=== PATIENT | male | born 1980 | race Two or more races ===

== ENCOUNTER → 2020-03-29 09:25 | Outpatient (BNVA) | payer OTHER, SELFPAY | PROVIDERS: PCP Physician Assistant; Referring Provider Physician Assistant; Visit Provider Internal Medicine | DX: F11.99 Opioid use, unspecified with unspecified opioid-induced disorder (principal) | CPT/HCPCS: 80305; 99211 ==

== ENCOUNTER → 2020-04-18 09:28 | Outpatient (BNVA) | payer OTHER, SELFPAY | PROVIDERS: PCP Family Medicine Adult Medicine; Visit Provider Internal Medicine | DX: F11.99 Opioid use, unspecified with unspecified opioid-induced disorder (principal) | CPT/HCPCS: 80305; 99211 ==

== ENCOUNTER → 2020-04-25 09:54 | Outpatient (BNVA) | payer OTHER, SELFPAY | PROVIDERS: PCP Family Medicine Adult Medicine; Visit Provider Internal Medicine | DX: F11.90 Opioid use, unspecified, uncomplicated (principal) | CPT/HCPCS: 99211 ==

== ENCOUNTER → 2020-05-09 13:48 | Outpatient (BNVA) | payer OTHER, SELFPAY | PROVIDERS: Visit Provider Internal Medicine | DX: F11.99 Opioid use, unspecified with unspecified opioid-induced disorder (principal) | CPT/HCPCS: 80305; 99211 ==

== ENCOUNTER → 2020-05-23 14:42 | Outpatient (BNVA) | payer OTHER, SELFPAY | PROVIDERS: Visit Provider Internal Medicine | DX: Z13.89 Encounter for screening for other disorder (principal) | CPT/HCPCS: 99211 ==

== ENCOUNTER → 2020-06-06 16:19 | Outpatient (BNVA) | payer OTHER, SELFPAY | PROVIDERS: Visit Provider Internal Medicine | DX: Z13.89 Encounter for screening for other disorder (principal) | CPT/HCPCS: Q3014 ==

== ENCOUNTER 2020-06-07 11:18 | Outpatient (REF) | payer OTHER, SELFPAY | END 2020-06-07 11:19 | disposition home or self-care (01) | LOC: HO.LAB 11:18 | PROVIDERS: PCP Family Medicine Adult Medicine; Visit Provider Internal Medicine | DX: Z20.828 Contact with and (suspected) exposure to other viral communicable diseases (principal) | CPT/HCPCS: C9803; U0003 ==

== ENCOUNTER → 2020-06-20 15:19 | Outpatient (BNVA) | payer OTHER, SELFPAY | PROVIDERS: Visit Provider Internal Medicine | DX: Z13.89 Encounter for screening for other disorder (principal) | CPT/HCPCS: Q3014 ==

== ENCOUNTER → 2020-07-04 11:41 | Outpatient (BNVA) | payer OTHER, SELFPAY | PROVIDERS: PCP Family Medicine Adult Medicine; Visit Provider Internal Medicine | DX: F11.99 Opioid use, unspecified with unspecified opioid-induced disorder (principal) | CPT/HCPCS: Q3014 ==

== ENCOUNTER → 2020-07-18 14:00 | Outpatient (BNVA) | payer OTHER, SELFPAY | PROVIDERS: Visit Provider Internal Medicine ==

== ENCOUNTER → 2020-08-08 10:48 | Outpatient (BNVA) | payer OTHER, SELFPAY | PROVIDERS: Visit Provider Internal Medicine | DX: Z51.81 Encounter for therapeutic drug level monitoring (principal) | CPT/HCPCS: 80305; 99211 ==

== ENCOUNTER → 2020-09-01 13:35 | Outpatient (BNVA) | payer OTHER, SELFPAY | PROVIDERS: Visit Provider Internal Medicine | DX: Z13.89 Encounter for screening for other disorder (principal) | CPT/HCPCS: Q3014 ==

== ENCOUNTER → 2020-10-06 14:55 | Outpatient (BNVA) | payer OTHER, SELFPAY | PROVIDERS: Visit Provider Internal Medicine | DX: F11.99 Opioid use, unspecified with unspecified opioid-induced disorder (principal) | CPT/HCPCS: 80305; 99212 ==

== ENCOUNTER → 2020-10-20 13:01 | Outpatient (BNVA) | payer OTHER, SELFPAY | PROVIDERS: Visit Provider Internal Medicine | DX: F11.99 Opioid use, unspecified with unspecified opioid-induced disorder (principal) | CPT/HCPCS: 80305; 99212 ==

== ENCOUNTER → 2020-11-03 12:52 | Outpatient (BNVA) | payer OTHER, SELFPAY | PROVIDERS: Visit Provider Internal Medicine | DX: F11.99 Opioid use, unspecified with unspecified opioid-induced disorder (principal) | CPT/HCPCS: 80305; 99211 ==

== ENCOUNTER → 2020-11-17 13:02 | Outpatient (BNVA) | payer OTHER, SELFPAY | PROVIDERS: Visit Provider Internal Medicine | DX: F11.99 Opioid use, unspecified with unspecified opioid-induced disorder (principal) | CPT/HCPCS: 80305; 99211 ==

== ENCOUNTER 2020-11-22 13:26 | Inpatient (IN) | payer OTHER, SELFPAY ==
[2020-11-22 13:40] VITALS: BP 132/90; PULSE 88; RESP 16; O2SAT 95; BMI 21.1
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
[2020-11-22 14:20] LABS: Glucose Urine UA NEG (NEG); Leukocyte Esterase Urine TRACE (NEG); Nitrite Urine NEG (NEG); UACC Culture Trigger YES; Urine Blood NEG (NEG); Urine Ketones NEG (NEG); Urine Protein NEG (NEG-TRACE)
[2020-11-22 14:22] LABS: Appearance Urine HAZY; Color Urine YELLOW
--- NOTE | 2020-11-22 14:29 | HE.PHANOTE ---
Pharmacy Consult ? Medication Reconciliation Pharmacy has completed the medication reconciliation and there were no significant medication issues requiring provider attention. Inna PalomoD
[2020-11-22 14:45] LABS: Amphetamine Screen Urine Not Detected (Not Detect); Barbiturates, Urine Not Detected (Not Detect); Benzodiazepines Screen Urine Not Detected (Not Detect); Cannabinoid Screen Urine Not Detected (Not Detect); Cocaine Screen Urine POSITIVE (Not Detect); Opiate Screen Urine Not Detected (Not Detect); Phencyclidine Screen Urine Not Detected (Not Detect)
[2020-11-22 14:46] LABS: Mucus Urine 1+ /LPF; RBC Urine 0 /HPF (0); Renal Epithelial Cells Urine TRACE /LPF
[2020-11-22 14:49] LABS: MANUAL DIFF FLAG NO
[2020-11-22 14:52] LABS: Basophils Percent Auto 0.4 % (0-2); Eosinophils Absolute Auto 0.1 X10*3/uL (0.0-0.4); Eosinophils Percent Auto 1.7 % (0-4); Hematocrit 47.8 % (42-52); Hemoglobin 15.5 g/dl (14.0-18.0); Imm Gran Abs Auto 0.03 X10*3/uL (0.00-0.03); Imm Gran Pct Auto 0.4 % (0.0-0.4); Lymphocytes Absolute Auto 1.1 X10*3/uL (1.2-4.9); Lymphocytes Percent Auto 13.1 % (20-40); Mean Corpuscular HGB Conc 32.4 g/dl (31.0-36.0); Mean Corpuscular Hemoglobin 28.9 pg (27.0-33.0); Mean Platelet Volume 8.5 fL (9.4-12.4); Monocytes Absolute Auto 0.4 X10*3/uL (0.1-1.2); Monocytes Percent Auto 5.2 % (2-11); Neutrophils Absolute Auto 6.5 X10*3/uL (2.0-8.3); Neutrophils Percent Auto 79.2 % (45-73); Platelet Count 242 X10*3/uL (160-400); Red Blood Count 5.37 X10*6/uL (4.60-5.80); Red Cell Distribution Width 13.2 % (11.0-16.0); White Blood Count 8.2 X10*3/uL (4.8-10.8)
[2020-11-22 15:11] LABS: COVID-19 Test Negative (Negative); IDNOW Serial# 9DD0AD1C
[2020-11-22 15:19] LABS: Ethanol < 10 mg/dL
[2020-11-22 15:23] LABS: Alanine Aminotransferase 10 U/L (0-40); Albumin Level 4.6 g/dL (3.5-5.0); Alkaline Phosphatase 68 U/L (39-117); Anion Gap 12 (12-20); Aspartate Amino Transferase 10 U/L (5-37); Bilirubin Direct 0.4 mg/dL (0.0-0.5); Bilirubin Total 1.3 mg/dL (0.0-1.0); Blood Urea Nitrogen 12 mg/dL (9-16); Calcium 9.7 mg/dL (8.4-10.2); Carbon Dioxide 28 mmol/L (22-29); Chloride 106 mmol/L (96-108); Creatinine Clr Calc Pharmacy 73.1; Estimated Glomerular Filt Rate > 60; Glucose Random 109 mg/dL (60-115); Magnesium 2.2 mg/dL (1.6-2.6); Potassium 4.1 mmol/L (3.3-5.1); Sodium 142 mmol/L (135-145); Total Protein 6.9 g/dL (6.5-8.0)
[2020-11-22 17:26] LABS: Lithium 0.36 mmol/L (0.60-1.20)
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
[2020-11-22] MEDS: LORazepam 2 MG/ML VIAL IM (18:47)
--- NOTE | 2020-11-22 19:53 | PC.NURSE ---
pt is still in 4 point restraints at this time. pt mom called and pt has the cordless phone placed on his pillow. sitter present 1:1.
--- NOTE | 2020-11-22 21:03 | PC.NURSE ---
pt sleeping resting comfortably, no s/s of distress. restraints remain off.
[2020-11-22] MEDS: QUEtiapine Fumarate 200 MG TABLET PO (22:43)
[2020-11-22] MEDS: Lithium Carbonate ER 450 MG TABLET.ER PO (22:43)
[2020-11-22] MEDS: clonazePAM 1 MG TABLET PO (22:43)
[2020-11-23] VITALS: RESP 16
--- NOTE | 2020-11-23 | ECG_ITS ---
Test Reason : MED CLARANCE Blood Pressure : / mmHG Vent. Rate : 061 BPM Atrial Rate : 061 BPM P-R Int : 140 ms QRS Dur : 098 ms QT Int : 430 ms P-R-T Axes : 049 086 063 degrees QTc Int : 432 ms Normal sinus rhythm Incomplete right bundle branch block Borderline ECG When compared with ECG of 27-APR-2019 16:06, No significant change was found Referred By: Lena Barbour Electronically Signed By:Damon Moreno
[2020-11-23 02:00] VITALS: RESP 16
[2020-11-23 06:09] VITALS: BP 112/70; PULSE 68; RESP 16; TEMP 36.9; O2SAT 98
--- NOTE | 2020-11-23 06:47 | PC.NURSE ---
prev rn stated during shift report that the pt received haldol 5mg im at 1821 and ativan 2mg im and was in restrains. haldol no documented in the system.
--- NOTE | 2020-11-23 07:17 | PC.NURSE ---
Pt report received from [facility]. Pt appears to be sleeping at this time. In patient bedsearch continues.
[2020-11-23 07:33] VITALS: BP 120/79; PULSE 73; RESP 18; TEMP 36.2; O2SAT 97
[2020-11-23] MEDS: Lithium Carbonate ER 450 MG TABLET.ER PO ×2 (09:47→22:59)
[2020-11-23] MEDS: Buprenorphine/Naloxone 8/2 mg FILM 2 FILM SUBLINGUAL (09:47)
[2020-11-23] MEDS: clonazePAM 1 MG TABLET PO ×3 (09:48→22:59)
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
[2020-11-23] MEDS: QUEtiapine Fumarate 50 MG TABLET PO (15:16)
--- NOTE | 2020-11-23 16:07 | MHC.CLN ---
NOTE REGARDING CONSULT: REVIEWED CURRENT AND PRIOR WEIGHTS. CONFIRMED CURRENT WEIGHT WITH NURSING. PRIOR WEIGHT 05/11=69 KG. CURRENT WEIGHT=65 KG WITH BMI=21.1. CURRENT WEIGHT APPEARS WITHIN USUAL BODY WEIGHT. PATIENT IS CURRENTLY AT LOW NUTRITIONAL RISK
[2020-11-23] MEDS: QUEtiapine Fumarate 200 MG TABLET PO (22:59)
[2020-11-24 06:00] VITALS: BP 107/58; PULSE 83; RESP 16; TEMP 36.6; O2SAT 97
[2020-11-24 07:26] LABS: Cholesterol 145 mg/dL; HDL Cholesterol 39 mg/dL; LDL Cholesterol Calculated 76 mg/dl; Triglycerides 152 mg/dL
[2020-11-24 07:33] LABS: Free T4 (Free Thyroxine) 0.89 ng/dL (0.71-1.85); Thyroid Stimulating Hormone 1.28 uIU/mL (0.32-4.0)
[2020-11-24 07:35] LABS: Estimated Average Glucose 103 mg/dL; Hemoglobin A1c % 5.2 %
[2020-11-24 08:31] LABS: Folate 8.3 ng/mL (> or = 4.0); Vitamin B12 169 pg/mL (200-900)
[2020-11-24] MEDS: clonazePAM 1 MG TABLET PO ×3 (08:53→21:03)
[2020-11-24] MEDS: Lithium Carbonate ER 450 MG TABLET.ER PO ×2 (08:53→21:04)
[2020-11-24] MEDS: QUEtiapine Fumarate 50 MG TABLET PO ×3 (08:54→21:10)
[2020-11-24] MEDS: Buprenorphine/Naloxone 8/2 mg FILM 2 FILM SUBLINGUAL (08:56)
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
[2020-11-24 18:00] VITALS: BP 113/72; PULSE 77; RESP 18; O2SAT 97
[2020-11-24] MEDS: QUEtiapine Fumarate 200 MG TABLET PO (21:04)
[2020-11-25 06:00] VITALS: BP 117/63; BP 117/72; PULSE 76; PULSE 97; RESP 16; O2SAT 97
[2020-11-25] MEDS: clonazePAM 1 MG TABLET PO ×3 (09:29→21:43)
[2020-11-25] MEDS: Buprenorphine/Naloxone 8/2 mg FILM 1 FILM SUBLINGUAL ×2 (09:29→17:31)
[2020-11-25] MEDS: QUEtiapine Fumarate 50 MG TABLET PO ×3 (09:29→21:44)
[2020-11-25] MEDS: Nicotine 21 MG PATCH.TD24 TRANSDERMA (14:32)
[2020-11-25 18:00] VITALS: BP 135/76; PULSE 83; RESP 18; O2SAT 97
[2020-11-25] MEDS: Lithium Carbonate ER 450 MG TABLET.ER 900 MG PO (21:43)
--- NOTE | 2020-11-25 21:43 | HO.PSYCHPN ---
Subjective Subjective Date of Service: 11/25/20 Reason For Visit: SI Diagnostics Vital Signs (24Hr): Vital Signs - 24 hr 11/25/20 06:00 11/25/20 18:00 Pulse Rate 76 83 Respiratory Rate 16 18 Blood Pressure 117/63 135/76 Pulse Oximetry 97 97 Body Mass Index 21.1 Labs Results: 11/22/20 14:42 11/22/20 14:42 Labs: Laboratory Results - last 48 hr 11/24/20 11/24/20 11/24/20 06:25 06:25 06:25 Estimat Average Glucose 103 Hemoglobin A1c % 5.2 Triglycerides 152 Cholesterol 145 LDL Cholesterol, Calc 76 HDL Cholesterol 39 Vitamin B12 169 L Folate 8.3 TSH 1.28 Free T4 0.89 Medications Medications Current Medications Generic Name Dose Route Start Last Admin Trade Name Freq PRN Reason Stop Dose Admin Acetaminophen 650 mg 11/23/20 10:15 Acetaminophen 325 Mg Tablet PO Q6H PRN Headache/Pain Mild Scale (1-3) Al Hydroxide/Mg Hydroxide 30 ml 11/23/20 10:15 Magnesium Hydrox/Alum Hydrox 30 Ml Oral.Susp PO Q6H PRN Heartburn/Nausea Buprenorphine/Naloxone 1 film 11/24/20 17:00 11/25/20 17:31 Buprenorphine/Naloxone 8/2 Mg Film SUBLINGUAL 1 film BIDWM BAILEY Administration Clonazepam 1 mg 11/22/20 16:00 11/25/20 14:13 Clonazepam 1 Mg Tablet PO 1 mg TID BAILEY Administration Docosanol 1 appl 11/25/20 18:00 11/25/20 14:51 Docosanol 10 % Cream 2 Gm Tube TOPICAL 1 appl 5XD BAILEY Administration Protocol Hydroxyzine HCl 25 mg 11/23/20 10:15 Hydroxyzine Hcl 25 Mg Tablet PO BEDTIME PRN Anxiety Hydroxyzine HCl 25 mg 11/25/20 14:23 Hydroxyzine Hcl 25 Mg Tablet PO Q6H PRN Anxiety [place] Carbonate 900 mg 11/25/20 21:00 [place] Carbonate Er 450 Mg Tablet.Er PO BEDTIME BAILEY Magnesium Hydroxide 30 ml 11/23/20 10:15 Milk Of Magnesia 30 Ml Oral.Susp PO DAILY PRN Constipation Nicotine 21 mg 11/25/20 14:30 11/25/20 14:32 Nicotine 21 Mg Patch.Td24 TRANSDERMA 21 mg DAILY BAILEY Administration Pharmacy Consult 1 each 11/22/20 14:12 Consult Rx Perform Med Rec MISCELLANE ONCE PRN Consult order Pharmacy Consult 1 each 11/22/20 15:29 Consult Rx Perform Med Rec MISCELLANE ONCE PRN Consult order Quetiapine Fumarate 50 mg 11/22/20 16:00 11/25/20 14:14 Quetiapine Fumarate 50 Mg Tablet PO 50 mg QID PRN Administration Agitation Quetiapine Fumarate 200 mg 11/22/20 21:00 11/24/20 21:04 Quetiapine Fumarate 200 Mg Tablet PO 200 mg BEDTIME BAILEY Administration Trazodone HCl 50 mg 11/23/20 10:15 Trazodone Hcl 50 Mg Tablet PO BEDTIME PRN Insomnia Allergies Allergies Allergy/AdvReac Type Severity Reaction Status Date / Time No Known Allergies Allergy Verified 11/03/20 13:12 Assessment & Plan Greater than 50% of the session was spent on counseling and/or coordination of care
[2020-11-25] MEDS: QUEtiapine Fumarate 200 MG TABLET PO (21:45)
[2020-11-26 06:00] VITALS: BP 117/83; PULSE 66; RESP 16; O2SAT 98
[2020-11-26 08:00] VITALS: BP 117/83; PULSE 66; RESP 16; O2SAT 98
[2020-11-26] MEDS: Nicotine 21 MG PATCH.TD24 TRANSDERMA (08:06)
[2020-11-26] MEDS: clonazePAM 1 MG TABLET PO ×3 (08:06→22:36)
[2020-11-26] MEDS: QUEtiapine Fumarate 50 MG TABLET PO ×3 (08:06→22:36)
[2020-11-26] MEDS: Buprenorphine/Naloxone 8/2 mg FILM 1 FILM SUBLINGUAL ×2 (08:08→17:12)
[2020-11-26 19:55] VITALS: BP 130/86; PULSE 81; RESP 18; TEMP 36.8; O2SAT 97
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
--- NOTE | 2020-11-26 21:12 | P.PNPSI_ITS ---
Subjective Subjective Date of Service: 11/26/20 Reason For Visit: SI Subjective Notes: Conditional Voluntary Healthcare Proxy: No Guardianship: No Medical Problems Affecting Mental Status: No Interim History: Pt hoping for discharge on 11/27. States he has found the admission helpful and has gained perspective on his current stressors. Denies med SE. Denies medical sx. Denies SI, HI. Reports sleep is intact. Pt observed, both 11/25 and today, on the phone with family, agitated, cursing and labile. When reviewed, pt reports this to be issue based vs mood based. Medication Compliance: Yes Side effects from medications: No Attending Groups: Yes Review of Systems Reports behavioral changes Psychiatric: Reports behavioral changes, Reports depression, Reports irri tability, Reports mood swings and Reports suicidal ideation (denies SI plan or intent) Mental Status Exam Mental Status Exam Patient Appearance: Appropriate Patient Orientation: Person, Place, Time and Situation Level of Consciousness: Alert Patient Behavior: Cooperative and Good Eye Contact Mood Description: Constricted Affect Description: Constricted Patient Cognition Impaired: No Ability to Follow Directions: Good Speech Pattern: Spontaneous Speech Memory Description: Intact Hallucinations: None Delusions: Not Present Thought Process: Intact Thought Content: positive for Intact Depressive Symptoms: Increased Irritability Judgement: Good Diagnostics Vital Signs (24Hr): Vital Signs - 24 hr 11/26/20 06:00 11/26/20 08:00 11/26/20 19:55 Temperature 98.3 F Pulse Rate 66 66 81 Respiratory Rate 16 16 18 Blood Pressure 117/83 117/83 130/86 Pulse Oximetry 98 98 97 Body Mass Index 21.1 Labs Results: 11/22/20 14:42 11/22/20 14:42 Medications Medications Current Medications Generic Name Dose Route Start Last Admin Trade Name Freq PRN Reason Stop Dose Admin Acetaminophen 650 mg 11/23/20 10:15 Acetaminophen 325 Mg Tablet PO Q6H PRN Headache/Pain Mild Scale (1-3) Al Hydroxide/Mg Hydroxide 30 ml 11/23/20 10:15 Magnesium Hydrox/Alum Hydrox 30 Ml Oral.Susp PO Q6H PRN Heartburn/Nausea Buprenorphine/Naloxone 1 film 11/24/20 17:00 11/26/20 17:12 Buprenorphine/Naloxone 8/2 Mg Film SUBLINGUAL 1 film BIDWM [facility] Administration Clonazepam 1 mg 11/22/20 16:00 11/26/20 14:41 Clonazepam 1 Mg Tablet PO 1 mg TID [facility] Administration Docosanol 1 appl 11/25/20 18:00 11/26/20 19:01 Docosanol 10 % Cream 2 Gm Tube TOPICAL 1 appl 5XD [facility] Administration Protocol Hydroxyzine HCl 25 mg 11/23/20 10:15 Hydroxyzine Hcl 25 Mg Tablet PO BEDTIME PRN Anxiety Hydroxyzine HCl 25 mg 11/25/20 14:23 Hydroxyzine Hcl 25 Mg Tablet PO Q6H PRN Anxiety [place] Carbonate 900 mg 11/25/20 21:00 11/25/20 21:43 [place] Carbonate Er 450 Mg Tablet.Er PO 900 mg BEDTIME [facility] Administration Magnesium Hydroxide 30 ml 11/23/20 10:15 Milk Of Magnesia 30 Ml Oral.Susp PO DAILY PRN Constipation Nicotine 21 mg 11/25/20 14:30 11/26/20 08:06 Nicotine 21 Mg Patch.Td24 TRANSDERMA 21 mg DAILY [facility] Administration Pharmacy Consult 1 each 11/22/20 14:12 Consult Rx Perform Med Rec MISCELLANE ONCE PRN Consult order Pharmacy Consult 1 each 11/22/20 15:29 Consult Rx Perform Med Rec MISCELLANE ONCE PRN Consult order Quetiapine Fumarate 50 mg 11/22/20 16:00 11/26/20 14:49 Quetiapine Fumarate 50 Mg Tablet PO 50 mg QID PRN Administration Agitation Quetiapine Fumarate 200 mg 11/22/20 21:00 11/25/20 21:45 Quetiapine Fumarate 200 Mg Tablet PO 200 mg BEDTIME [facility] Administration Trazodone HCl 50 mg 11/23/20 10:15 Trazodone Hcl 50 Mg Tablet PO BEDTIME PRN Insomnia Allergies Allergies Allergy/AdvReac Type Severity Reaction Status Date / Time No Known Allergies Allergy Verified 11/03/20 13:12 Assessment & Plan Assessment & Plan (1) Bipolar disorder: Status: Acute Code(s): F31.9 - Bipolar disorder, unspecified Assessment and Plan: 40 yo male with hx of depression, anxiety, opiate and cocaine use disorders. Pt currently on Suboxone. Pt to ER with police after calling them reporting SI with a plan to hang himself. Denies HI. Pt required restraint in the ER. Family reports he has been non compliant with medications STERNMAN. [place] level 0.36, tox + cocaine Will re-establish regime, obtain collateral contact, review diagno stics and discuss precipitants and need for further supports with pt. He does have stable therapy and medication mgt in place. Plan: Continue current regime. Pt does not want any changes in regime at this time. Greater than 50% of the session was spent on counseling and/or coordination of care Reason for contiued inpatient stay Substantial Risk for: harm to self, inability to function and rapid decompensation
[2020-11-26] MEDS: QUEtiapine Fumarate 200 MG TABLET PO (22:36)
[2020-11-26] MEDS: Lithium Carbonate ER 450 MG TABLET.ER 900 MG PO (22:36)
[2020-11-27] MEDS: QUEtiapine Fumarate 50 MG TABLET PO ×2 (08:04→13:33)
[2020-11-27] MEDS: Nicotine 21 MG PATCH.TD24 TRANSDERMA (08:04)
[2020-11-27] MEDS: clonazePAM 1 MG TABLET PO ×2 (08:04→13:33)
[2020-11-27] MEDS: Buprenorphine/Naloxone 8/2 mg FILM 1 FILM SUBLINGUAL ×2 (08:05→13:33)
[2020-11-27 09:52] VITALS: BP 120/69; PULSE 78; RESP 18; TEMP 36.8; O2SAT 97
--- NOTE | 2020-11-27 13:34 | P.DS_ITS ---
DS: Providers Provider Date of Service: 11/27/20 Date of admission: 11/23/20 10:15 Primary care physician: Unknown Physician DS: Diagnosis Discharge Diagnosis (1) Bipolar disorder: Status: Acute DS: Medications Discharge Medications Home Medications: Home Medications Medication Instructions Recorded Confirmed clonazepam 1 mg tablet 1 mg PO TID 03/29/20 11/22/20 quetiapine 50 mg PO QID PRN 11/22/20 11/22/20 Previous Rx's Medication Instructions Recorded buprenorphine 8 mg-naloxone 2 mg 2 film SUBLINGUAL DAILY 14 Days 11/17/20 sublingual film #28 ea lithium carbonate 900 mg PO BEDTIME #30 tab 11/27/20 quetiapine 200 mg PO BEDTIME #30 tab 11/27/20 Discharge Plan Discharge Patient Disposition: Home, Self-Care Discharge Diagnosis: Bipolar Disorder type I Referrals: [facility] [Other] - 11/27/20 (Go to the clinic once you are discharged to schedule your next appointment and get scripts filled) Nikki Sky (psychiatrist) [Other] - 12/26/20 11:10 am (Telehealth appointment) Anel Martinez (therapist) [Other] (Follow up with therapist for appointment, voicemail left) Physician,Unknown [Primary Care Provider] - 1 Week Discharge Medications: New quetiapine 200 mg Tablet 200 mg PO BEDTIME Qty: 30 RF: 0 lithium carbonate 450 mg Tablet Extended Release 900 mg PO BEDTIME Qty: 30 RF: 0 Continued quetiapine 50 mg tablet 50 mg PO QID PRN (Reason: Agitation) RF: 0 clonazepam [Klonopin] 1 mg tablet 1 mg PO TID RF: 0 Discontinued lithium carbonate 450 mg tablet extended release 450 mg PO BID RF: 0 quetiapine 200 mg tablet 200 mg PO BEDTIME RF: 0 No Action buprenorphine-naloxone [Suboxone] 8-2 mg film 2 film sublingual DAILY 14 Days Qty: 28 RF: 0 Discharge Orders: Discharge Order (Routine); Ordered 11/27/20 Ordered By: Georgiana Dexter Diet: regular diet Activity on Discharge: As tolerated Stand Alone Forms: Patient Portal Discharge page Care Plan Goals: Improve mood Maintain safety Health Concerns: Follow up with PCP Plan of Treatment: 1. Take medications as prescribed. 2. Follow up with appointments 3. Abstain from using illegal substances. 4. Go to nearest ED or call 911 in event of emergency. Assessment: No SI/HI. Future oriented. Discharge Date/Time: 11/27/20 14:05 Mental Status Exam Mental Status Exam Narrative: Appearance: casually groomed, fair hygiene, in NAD Behavior: calm, cooperative Psychomotor: no agitation or retardation noted Speech: clear, normal rate/rhythm/volume, spontaneous TP: linear TC: no signs of psychosis, more hopeful Mood: better Affect:brightens at times SI:denies HI:denies AH/VH:none Delusions:none Insight/judgment:fair x 2 Memory/cog: alert, oriented x 3. grossly intact to conversational testing. Data Data Completed and Pending Completed studies during hospitalization [Text1]: 11/22/20 11/22/20 11/22/20 14:03 14:15 14:42 WBC 8.2 RBC 5.37 Hgb 15.5 Hct 47.8 MCV 89.0 MCH 28.9 MCHC 32.4 RDW 13.2 Plt Count 242 MPV 8.5 L Immature Gran % (Auto) 0.4 Neut % (Auto) 79.2 H Lymph % (Auto) 13.1 L [place] % (Auto) 5.2 Eos % (Auto) 1.7 Baso % (Auto) 0.4 Lymph # (Auto) 1.1 L [place] # (Auto) 0.4 Eos # (Auto) 0.1 Baso # (Auto) 0.0 Abs Immat Gran (auto) 0.03 Absolute Neuts (auto) 6.5 Absolute Nucleated RBC 0.000 Nucleated RBC % (auto) 0.0 Sodium Potassium Chloride Carbon Dioxide Anion Gap BUN Creatinine Estim Creat Clear Calc Estimated GFR Random Glucose Estimat Average Glucose Hemoglobin A1c % Calcium Magnesium Total Bilirubin Direct Bilirubin AST ALT Alkaline Phosphatase Total Protein Albumin Triglycerides Cholesterol LDL Cholesterol, Calc HDL Cholesterol Vitamin B12 Folate TSH Free T4 Urine Color YELLOW Urine Appearance HAZY Urine pH 6.0 Ur Specific [place] 1.020 Urine Protein NEG Urine Glucose (UA) NEG Urine Ketones NEG Urine Blood NEG Urine Nitrite NEG Ur Leukocyte Esterase TRACE H Urine RBC 0 Urine WBC 1-4 Ur Squamous Epith Cells NONE Ur Renal Epithelial Cell TRACE Urine Bacteria NONE Urine Mucus 1+ Urine Opiates Screen Not Detected Ur Barbiturates Screen Not Detected Ur Phencyclidine Scrn Not Detected Ur Amphetamines Screen Not Detected U Benzodiazepines Scrn Not Detected [place] Urine Cocaine Screen POSITIVE H U Marijuana (THC) Screen Not Detected Ethyl Alcohol COVID-19 ([facility]ZETT) COVID-19 [employer] Com 11/22/20 11/22/20 11/22/20 14:42 14:42 14:42 WBC RBC Hgb Hct MCV MCH MCHC RDW Plt Count MPV Immature Gran % (Auto) Neut % (Auto) Lymph % (Auto) [place] % (Auto) Eos % (Auto) Baso % (Auto) Lymph # (Auto) [place] # (Auto) Eos # (Auto) Baso # (Auto) Abs Immat Gran (auto) Absolute Neuts (auto) Absolute Nucleated RBC Nucleated RBC % (auto) Sodium 142 Potassium 4.1 Chloride 106 Carbon Dioxide 28 Anion Gap 12 BUN 12 Creatinine 1.21 Estim Creat Clear Calc 73.1 Estimated GFR > 60 Random Glucose 109 Estimat Average Glucose Hemoglobin A1c % Calcium 9.7 Magnesium 2.2 Total Bilirubin 1.3 H Direct Bilirubin 0.4 AST 10 ALT 10 Alkaline Phosphatase 68 Total Protein 6.9 Albumin 4.6 Triglycerides Cholesterol LDL Cholesterol, Calc HDL Cholesterol Vitamin B12 Folate TSH Free T4 Urine Color Urine Appearance Urine pH Ur Specific [place] Urine Protein Urine Glucose (UA) Urine Ketones Urine Blood Urine Nitrite Ur Leukocyte Esterase Urine RBC Urine WBC Ur Squamous Epith Cells Ur Renal Epithelial Cell Urine Bacteria Urine Mucus Urine Opiates Screen Ur Barbiturates Screen Ur Phencyclidine Scrn Ur Amphetamines Screen U Benzodiazepines Scrn [place] Urine Cocaine Screen U Marijuana (THC) Screen Ethyl Alcohol < 10 COVID-19 ([facility]) Negative COVID-19 [employer] Com See Note 11/22/20 11/22/20 11/24/20 14:42 14:42 06:25 WBC RBC Hgb Hct MCV MCH MCHC RDW Plt Count MPV Immature Gran % (Auto) Neut % (Auto) Lymph % (Auto) [place] % (Auto) Eos % (Auto) Baso % (Auto) Lymph # (Auto) [place] # (Auto) Eos # (Auto) Baso # (Auto) Abs Immat Gran (auto) Absolute Neuts (auto) Absolute Nucleated RBC Nucleated RBC % (auto) Sodium Potassium Chloride Carbon Dioxide Anion Gap BUN Creatinine Estim Creat Clear Calc Estimated GFR Random Glucose Estimat Average Glucose 103 Hemoglobin A1c % 5.2 Calcium Magnesium Total Bilirubin Direct Bilirubin AST ALT Alkaline Phosphatase Total Protein Albumin Triglycerides Cholesterol LDL Cholesterol, Calc HDL Cholesterol Vitamin B12 Folate TSH Free T4 Urine Color Urine Appearance Urine pH Ur Specific [place] Urine Protein Urine Glucose (UA) Urine Ketones Urine Blood Urine Nitrite Ur Leukocyte Esterase Urine RBC Urine WBC Ur Squamous Epith Cells Ur Renal Epithelial Cell Urine Bacteria Urine Mucus Urine Opiates Screen Ur Barbiturates Screen Ur Phencyclidine Scrn Ur Amphetamines Screen U Benzodiazepines Scrn [place] Cancelled 0.36 L Urine Cocaine Screen U Marijuana (THC) Screen Ethyl Alcohol COVID-19 ([facility]) COVID-19 Clin Com 11/24/20 11/24/20 06:25 06:25 WBC RBC Hgb Hct MCV MCH MCHC RDW Plt Count MPV Immature Gran % (Auto) Neut % (Auto) Lymph % (Auto) [place] % (Auto) Eos % (Auto) Baso % (Auto) Lymph # (Auto) [place] # (Auto) Eos # (Auto) Baso # (Auto) Abs Immat Gran (auto) Absolute Neuts (auto) Absolute Nucleated RBC Nucleated RBC % (auto) Sodium Potassium Chloride Carbon Dioxide Anion Gap BUN Creatinine Estim Creat Clear Calc Estimated GFR Random Glucose Estimat Average Glucose Hemoglobin A1c % Calcium Magnesium Total Bilirubin Direct Bilirubin AST ALT Alkaline Phosphatase Total Protein Albumin Triglycerides 152 Cholesterol 145 LDL Cholesterol, Calc 76 HDL Cholesterol 39 Vitamin B12 169 L Folate 8.3 TSH 1.28 Free T4 0.89 Urine Color Urine Appearance Urine pH Ur Specific [place] Urine Protein Urine Glucose (UA) Urine Ketones Urine Blood Urine Nitrite Ur Leukocyte Esterase Urine RBC Urine WBC Ur Squamous Epith Cells Ur Renal Epithelial Cell Urine Bacteria Urine Mucus Urine Opiates Screen Ur Barbiturates Screen Ur Phencyclidine Scrn Ur Amphetamines Screen U Benzodiazepines Scrn [place] Urine Cocaine Screen U Marijuana (THC) Screen Ethyl Alcohol COVID-19 ([facility]) COVID-19 Clin Com DS: Summary Hospital Course Hospital Course: Mr. Pathak is a 40 year-old male with hx of Bipolar Disorder, opioid use disorder in remission, cocaine use who self presented to [facility] ER reporting increased suicidal ideation in setting of loss of his brother who committed suicide about 5 months ago and having ongoing conflict with ex with whom he has a 6 year- old son. In the ED, his utox was positive for cocaine. He initially had called crisis and was assessed at his home and brought to ED via EMS. On the unit, Sam presents as pleasant and calm. He reports that he has learned over the years to identify the triggers for his increase depression and decided to ask for help before it was too late. He reports 7-10 years ago he had a serious suicide attempt when he tried to hang himself and was found unresponsive by first . He reports today he does not want to but needs help. He reports that use of cocaine was sporadic and only because of his increased depression. He declines any additional support in terms of substance use treatment. He denies hx of VH/AH. He does report hx of mood lability, periods of marked increased energy, engaging in risk behaviors independence of substance use. He reports he has been on [place] for several years and this medication has been very helpful for mood. He reports overall feel current medications are helping and needing mostly structure and support of inpatient unit. HOSPITAL COURSE Mr. Pathak was admitted on CV and placed on 15 minutes check for safety. He initially endorsed feeling very depressed, overwhelmed, anxious about recent loss of his younger brother, who of suicide 8 months ago and ongoing proble ms with first with whom he has a 6 year-old boy. He reported that he has learned over the years to identify triggers. He adamantly denied suicidal ideation on the unit and identify his children as protective factors. After discussing risks, benefits and alternative treatment options, he agreed to continue OP psych meds, which he has been taking for several years after several med trials. He felt that it was not a medication issue. He was continued on [place], clonazepam, suboxone. He decline referrals for further substance use treatment since he was positive for cocaine. He reported it was an occasional use and decline that it was problematic. He denies any plan to continue using cocaine, but this may be his effort to minimize his use and tits effects on his mood. He was visible in the unit, attended assigned groups. He reported improved symptoms of depression and presented future oriented in that he was looking forward to continue OP treatment and see his family, especially his daughter. There were no incidences of disruptive behaviors nor use of restraints. Status at Discharge Cognitive/behavioral status at discharge: No SI/HI. Affect is brighter, non labile. No VH/AH. No signs of aggression towards self or others. Functional status at discharge: independent ambulation Overall status at discharge: patient is progressing back to baseline Time Spent with Patient Time attestation: Total time spent providing and/or coordinating discharge services: Time spent: Greater than 30 minutes
== END 2020-11-27 14:05 | disposition home or self-care (01) | DRG 885 ==
LOC: HO.ED 16:38 → HO.PADLT16 11-23 10:56
PROVIDERS: Physician Assistant; Admitting Provider Psychiatry & Neurology Psychiatry; Emergency Provider Emergency Medicine; Visit Provider Social Worker
DX: F31.62 Bipolar disorder, current episode mixed, moderate (principal); R45.851 Suicidal ideations; F11.20 Opioid dependence, uncomplicated; F14.90 Cocaine use, unspecified, uncomplicated; Z20.822 Contact with and (suspected) exposure to COVID-19; Z91.5 Personal history of self-harm; Z87.891 Personal history of nicotine dependence; Z79.899 Other long term (current) drug therapy
CPT/HCPCS: 36415; 80048; 80061; 80076; 80178; 80307; 81001; 81003; 82077; 82607; 82746; 83036; 83735; 84439; 84443; 85025; 87635; 93005; 96372; 99285; J2060

== ENCOUNTER → 2020-11-27 14:16 | Outpatient (BNVA) | payer OTHER, SELFPAY | PROVIDERS: Visit Provider Internal Medicine | DX: F11.11 Opioid abuse, in remission (principal) | CPT/HCPCS: 80305 ==

== ENCOUNTER → 2020-12-01 11:56 | Outpatient (BNVA) | payer OTHER, SELFPAY | PROVIDERS: Visit Provider Internal Medicine | DX: Z51.81 Encounter for therapeutic drug level monitoring (principal) | CPT/HCPCS: Q3014 ==

== ENCOUNTER → 2020-12-15 13:37 | Outpatient (BNVA) | payer OTHER, SELFPAY | PROVIDERS: Visit Provider Internal Medicine | DX: Z51.81 Encounter for therapeutic drug level monitoring (principal) | CPT/HCPCS: 80305; 99211 ==

== ENCOUNTER → 2020-12-29 13:00 | Outpatient (BNVA) | payer OTHER, SELFPAY | PROVIDERS: Visit Provider Internal Medicine | DX: Z51.81 Encounter for therapeutic drug level monitoring (principal) | CPT/HCPCS: 80305; 99211 ==

== ENCOUNTER → 2021-01-12 12:51 | Outpatient (BNVA) | payer OTHER, SELFPAY | PROVIDERS: Visit Provider Internal Medicine | DX: F11.99 Opioid use, unspecified with unspecified opioid-induced disorder (principal) | CPT/HCPCS: 80305; 99211 ==

== ENCOUNTER → 2021-01-26 12:55 | Outpatient (BNVA) | payer OTHER, SELFPAY | PROVIDERS: Visit Provider Internal Medicine | DX: F11.11 Opioid abuse, in remission (principal); F14.129 Cocaine abuse with intoxication, unspecified | CPT/HCPCS: 80305; 99212 ==

== ENCOUNTER 2021-01-28 13:23 | Emergency (ER) | payer OTHER, SELFPAY ==
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
[2021-01-28 14:42] VITALS: BP 126/72; PULSE 63; RESP 14; TEMP 36.6; O2SAT 99; BMI 22.8
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
[2021-01-28 16:45] VITALS: BP 117/76; PULSE 60; TEMP 36.7; O2SAT 99
[2021-01-28 17:09] LABS: MANUAL DIFF FLAG NO
[2021-01-28 17:11] LABS: Basophils Percent Auto 0.3 % (0-2); Eosinophils Absolute Auto 0.1 X10*3/uL (0.0-0.4); Eosinophils Percent Auto 0.8 % (0-4); Hematocrit 47.6 % (42-52); Hemoglobin 15.3 g/dl (14.0-18.0); Imm Gran Abs Auto 0.05 X10*3/uL (0.00-0.03); Imm Gran Pct Auto 0.5 % (0.0-0.4); Lymphocytes Absolute Auto 1.5 X10*3/uL (1.2-4.9); Lymphocytes Percent Auto 15.5 % (20-40); Mean Corpuscular HGB Conc 32.1 g/dl (31.0-36.0); Mean Corpuscular Volume 90.2 fL (80-98); Mean Platelet Volume 9.1 fL (9.4-12.4); Monocytes Absolute Auto 0.5 X10*3/uL (0.1-1.2); Monocytes Percent Auto 5.2 % (2-11); Neutrophils Absolute Auto 7.7 X10*3/uL (2.0-8.3); Neutrophils Percent Auto 77.7 % (45-73); Platelet Count 242 X10*3/uL (160-400); Red Blood Count 5.28 X10*6/uL (4.60-5.80); White Blood Count 9.9 X10*3/uL (4.8-10.8)
[2021-01-28 17:15] LABS: INTERNATIONAL NORM RATIO 0.9 (0.9-1.1); Prothrombin Time 10.2 SEC (9.9-13.0)
[2021-01-28 17:32] LABS: Lactic Acid 1.2 mmol/L (0.5-2.0)
[2021-01-28] MEDS: Diphth,Pertus(ACell),Tet Adult 0.5 ML SYRINGE IM (17:34)
[2021-01-28 17:36] LABS: Alanine Aminotransferase 13 U/L (0-40); Albumin Level 4.9 g/dL (3.5-5.0); Alkaline Phosphatase 74 U/L (39-117); Anion Gap 11 (12-20); Aspartate Amino Transferase 12 U/L (5-37); Bilirubin Total 0.9 mg/dL (0.0-1.0); Blood Urea Nitrogen 15 mg/dL (9-16); C Reactive Protein 0.39 mg/dL (< or = 0.50); Calcium 9.6 mg/dL (8.4-10.2); Carbon Dioxide 27 mmol/L (22-29); Chloride 110 mmol/L (96-108); Creatinine Clr Calc Pharmacy 77.8; Estimated Glomerular Filt Rate > 60; Glucose Random 107 mg/dL (60-115); Magnesium 2.2 mg/dL (1.6-2.6); Potassium 4.8 mmol/L (3.3-5.1); Sodium 143 mmol/L (135-145); Total Protein 7.5 g/dL (6.5-8.0)
[2021-01-28] MEDS: Buprenorphine/Naloxone 8/2 mg TAB.SUBL 2 TAB SUBLINGUAL (17:49)
[2021-01-28] MEDS: cefTRIAXone sodium 2 GM in 0.9 % Sodium Chloride 50 ML IV (17:49)
[2021-01-28 17:56] LABS: Influenza A PCR NEGATIVE (Negative); Influenza B PCR NEGATIVE (Negative); Resp Syncy Virus RNA Qual PCR NEGATIVE (Negative); SARS COV2 PCR INHOUSE NEGATIVE (Negative)
[2021-01-28 18:02] LABS: Erythrocyte Sedimentation Rate 1 MM/HR (0-15)
[2021-01-28] MEDS: vancomycin HCL 750 MG in 0.9 % Sodium Chloride 250 ML 265 MG IV (18:21)
== END 2021-01-28 18:48 | disposition home or self-care (01) ==
PROVIDERS: Physician Assistant Medical; Emergency Provider Internal Medicine; PCP Family Medicine Adult Medicine
DX: T81.49XA Infection following a procedure, other surgical site, initial encounter (principal); L02.416 Cutaneous abscess of left lower limb; M25.562 Pain in left knee; Z20.822 Contact with and (suspected) exposure to COVID-19; F11.20 Opioid dependence, uncomplicated; F17.210 Nicotine dependence, cigarettes, uncomplicated; F14.10 Cocaine abuse, uncomplicated
CPT/HCPCS: 0241U; 36415; 73560; 80053; 83605; 83735; 85025; 85610; 85652; 86140; 87040; 90471; 90715; 96365; 96367; 99284; J0696; J3370

== ENCOUNTER → 2021-02-02 13:02 | Outpatient (BNVA) | payer OTHER, SELFPAY | PROVIDERS: Visit Provider Internal Medicine | DX: Z51.81 Encounter for therapeutic drug level monitoring (principal) | CPT/HCPCS: 80305; 99211 ==

== ENCOUNTER 2021-02-09 12:46 | Outpatient (RCR) | payer OTHER, SELFPAY | END 2021-04-03 07:26 | disposition home or self-care (01) | LOC: HO.WCC 12:46 | PROVIDERS: PCP Family Medicine Adult Medicine; Visit Provider Plastic Surgery | DX: S81.012A Laceration without foreign body, left knee, initial encounter (principal); F17.210 Nicotine dependence, cigarettes, uncomplicated | CPT/HCPCS: 11042; 99213 ==

== ENCOUNTER → 2021-02-23 13:02 | Outpatient (BNVA) | payer OTHER, SELFPAY | PROVIDERS: Visit Provider Internal Medicine | DX: Z51.81 Encounter for therapeutic drug level monitoring (principal); F11.11 Opioid abuse, in remission | CPT/HCPCS: 80305; 99212 ==

== ENCOUNTER → 2021-03-09 13:03 | Outpatient (BNVA) | payer OTHER, SELFPAY | PROVIDERS: Visit Provider Internal Medicine | DX: Z51.81 Encounter for therapeutic drug level monitoring (principal); F11.11 Opioid abuse, in remission | CPT/HCPCS: 80305; 99212 ==

== ENCOUNTER 2021-03-20 14:05 | Outpatient (REF) | payer OTHER, SELFPAY ==
[2021-03-20 17:26] LABS: Fentanyl, urine Not Detected (Not Detect)
== END 2021-03-20 14:06 | disposition home or self-care (01) ==
LOC: HO.LNP 14:05
PROVIDERS: Visit Provider Internal Medicine
DX: Z51.81 Encounter for therapeutic drug level monitoring (principal); F11.99 Opioid use, unspecified with unspecified opioid-induced disorder; Z79.899 Other long term (current) drug therapy
CPT/HCPCS: 80307; 99212

== ENCOUNTER → 2021-04-06 11:38 | Outpatient (BNVA) | payer OTHER, SELFPAY | PROVIDERS: Visit Provider Internal Medicine | DX: F11.11 Opioid abuse, in remission (principal) | CPT/HCPCS: 80305; 99212 ==

== ENCOUNTER 2021-04-20 11:27 | Outpatient (REF) | payer OTHER, SELFPAY ==
[2021-04-20 17:58] LABS: Fentanyl, urine Not Detected (Not Detect)
== END 2021-04-20 11:28 | disposition home or self-care (01) ==
LOC: HO.LNP 11:27
PROVIDERS: Visit Provider Internal Medicine
DX: F11.11 Opioid abuse, in remission (principal); F14.129 Cocaine abuse with intoxication, unspecified; Z79.899 Other long term (current) drug therapy
CPT/HCPCS: 80305; 80307; 99212

== ENCOUNTER → 2021-04-27 11:30 | Outpatient (BNVA) | payer OTHER, SELFPAY | PROVIDERS: Visit Provider Internal Medicine | DX: F11.11 Opioid abuse, in remission (principal) | CPT/HCPCS: 80305; 99212 ==

== ENCOUNTER → 2021-05-04 13:17 | Outpatient (BNVA) | payer OTHER, SELFPAY | PROVIDERS: Visit Provider Internal Medicine | DX: F11.11 Opioid abuse, in remission (principal); Z51.81 Encounter for therapeutic drug level monitoring; Z79.899 Other long term (current) drug therapy | CPT/HCPCS: 80305; 99212 ==

== ENCOUNTER → 2021-05-11 15:32 | Outpatient (BNVA) | payer OTHER, SELFPAY | PROVIDERS: Visit Provider Internal Medicine | DX: F11.11 Opioid abuse, in remission (principal); F17.210 Nicotine dependence, cigarettes, uncomplicated; Z51.81 Encounter for therapeutic drug level monitoring | CPT/HCPCS: 80305; 99212 ==

== ENCOUNTER → 2021-05-25 15:32 | Outpatient (BNVA) | payer OTHER, SELFPAY | PROVIDERS: Visit Provider Internal Medicine | DX: Z51.81 Encounter for therapeutic drug level monitoring (principal); F11.20 Opioid dependence, uncomplicated; F17.200 Nicotine dependence, unspecified, uncomplicated | CPT/HCPCS: 80305; 99212 ==

== ENCOUNTER → 2021-06-08 15:30 | Outpatient (BNVA) | payer OTHER, SELFPAY | PROVIDERS: Visit Provider Internal Medicine | DX: Z51.81 Encounter for therapeutic drug level monitoring (principal); F11.20 Opioid dependence, uncomplicated | CPT/HCPCS: 80305 ==

== ENCOUNTER → 2021-06-20 15:05 | Outpatient (BNVA) | payer OTHER, SELFPAY | DX: Z51.81 Encounter for therapeutic drug level monitoring (principal); F11.20 Opioid dependence, uncomplicated | CPT/HCPCS: 80305; 99211 ==

== ENCOUNTER → 2021-07-04 14:31 | Outpatient (BNVA) | payer OTHER, SELFPAY | DX: Z51.81 Encounter for therapeutic drug level monitoring (principal); F11.20 Opioid dependence, uncomplicated | CPT/HCPCS: 80305; 99211 ==

== ENCOUNTER → 2021-07-18 15:11 | Outpatient (BNVA) | payer OTHER, SELFPAY | PROVIDERS: Visit Provider Internal Medicine | DX: Z51.81 Encounter for therapeutic drug level monitoring (principal); F11.20 Opioid dependence, uncomplicated | CPT/HCPCS: 80305; 99211 ==

== ENCOUNTER → 2021-08-01 14:25 | Outpatient (BNVA) | payer OTHER, SELFPAY | PROVIDERS: Visit Provider Internal Medicine | DX: Z51.81 Encounter for therapeutic drug level monitoring (principal); F11.20 Opioid dependence, uncomplicated | CPT/HCPCS: 80305; 99211 ==

== ENCOUNTER → 2021-08-17 13:53 | Outpatient (BNVA) | payer OTHER, SELFPAY | PROVIDERS: Visit Provider Internal Medicine | DX: Z51.81 Encounter for therapeutic drug level monitoring (principal); F11.20 Opioid dependence, uncomplicated | CPT/HCPCS: 80305 ==

== ENCOUNTER 2021-09-01 14:30 | Emergency (ER) | payer OTHER, SELFPAY ==
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
[2021-09-01 14:40] VITALS: BP 147/87; PULSE 78; RESP 18; TEMP 37.6; O2SAT 97; BMI 24.3
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
[2021-09-01 18:57] LABS: MANUAL DIFF FLAG NO
[2021-09-01 19:03] LABS: Basophils Percent Auto 0.4 % (0-2); Eosinophils Absolute Auto 0.2 X10*3/uL (0.0-0.4); Eosinophils Percent Auto 1.8 % (0-4); Hemoglobin 15.5 g/dl (14.0-18.0); Imm Gran Abs Auto 0.04 X10*3/uL (0.00-0.03); Imm Gran Pct Auto 0.4 % (0.0-0.4); Lymphocytes Absolute Auto 1.6 X10*3/uL (1.2-4.9); Lymphocytes Percent Auto 16.9 % (20-40); Mean Corpuscular Hemoglobin 29.3 pg (27.0-33.0); Mean Corpuscular Volume 88.8 fL (80.0-98.0); Mean Platelet Volume 8.7 fL (9.4-12.4); Monocytes Absolute Auto 0.6 X10*3/uL (0.1-1.2); Neutrophils Absolute Auto 7.2 x10*3/uL (2.0-8.3); Neutrophils Percent Auto 74.5 % (45-73); Platelet Count 218 X10*3/uL (160-400); Red Blood Count 5.29 X10*6/uL (4.60-5.80); Red Cell Distribution Width 12.6 % (11.0-16.0); White Blood Count 9.7 X10*3/uL (4.8-10.8)
[2021-09-01 19:14] LABS: Alanine Aminotransferase 10 U/L (0-40); Albumin Level 4.7 g/dL (3.5-5.0); Alkaline Phosphatase 84 U/L (39-117); Anion Gap 11 (12-20); Aspartate Amino Transferase 12 U/L (5-37); Bilirubin Direct 0.4 mg/dL (0.0-0.5); Bilirubin Total 1.5 mg/dL (0.0-1.0); Blood Urea Nitrogen 9 mg/dL (9-16); Calcium 9.8 mg/dL (8.4-10.2); Carbon Dioxide 26 mmol/L (22-29); Chloride 107 mmol/L (96-108); Creatinine Clr Calc Pharmacy 95.9; Estimated Glomerular Filt Rate > 60; Glucose Random 104 mg/dL (60-115); Lipase 32 U/L (8-78); Sodium 140 mmol/L (135-145); Total Protein 7.5 g/dL (6.5-8.0)
[2021-09-01] MEDS: 0.9 % Sodium Chloride 1,000 ML 999 ML IV (19:47)
[2021-09-01] MEDS: iohexoL 350 MG/ML 100 ML INFUS..BTL IV (19:51)
== END 2021-09-01 21:30 | disposition home or self-care (01) ==
PROVIDERS: Physician Assistant; Emergency Provider Emergency Medicine Emergency Medical Services
DX: Z04.3 Encounter for examination and observation following other accident (principal); M25.512 Pain in left shoulder; R10.32 Left lower quadrant pain; R07.81 Pleurodynia; M25.552 Pain in left hip
CPT/HCPCS: 36415; 70450; 71101; 72125; 73030; 73502; 74177; 80048; 80076; 83690; 85025; 96360; 99284; Q9967

== ENCOUNTER → 2021-09-14 13:38 | Outpatient (BNVA) | payer OTHER, SELFPAY | PROVIDERS: Visit Provider Internal Medicine | DX: F11.20 Opioid dependence, uncomplicated (principal) | CPT/HCPCS: 80305; 99211 ==

== ENCOUNTER → 2021-10-12 15:48 | Outpatient (BNVA) | payer OTHER, SELFPAY | PROVIDERS: Visit Provider Internal Medicine | DX: F11.20 Opioid dependence, uncomplicated (principal) | CPT/HCPCS: 80305; 99212 ==

== ENCOUNTER → 2021-11-09 14:52 | Outpatient (BNVA) | payer OTHER, SELFPAY | PROVIDERS: Visit Provider Internal Medicine | DX: Z51.81 Encounter for therapeutic drug level monitoring (principal); F11.11 Opioid abuse, in remission | CPT/HCPCS: 99212 ==

== ENCOUNTER → 2021-12-07 14:17 | Outpatient (BNVA) | payer OTHER, SELFPAY | PROVIDERS: Visit Provider Internal Medicine | DX: F11.20 Opioid dependence, uncomplicated (principal) | CPT/HCPCS: 80305; 99212 ==

== ENCOUNTER 2021-12-12 13:10 | Outpatient (REF) | payer OTHER, SELFPAY ==
[2021-12-12 13:25] LABS: MANUAL DIFF FLAG NO
[2021-12-12 14:09] LABS: Basophils Percent Auto 0.3 % (0-2); Eosinophils Absolute Auto 0.2 X10*3/uL (0.0-0.4); Eosinophils Percent Auto 1.7 % (0-4); Hematocrit 49.6 % (42.0-52.0); Imm Gran Abs Auto 0.03 X10*3/uL (0.00-0.03); Imm Gran Pct Auto 0.3 % (0.0-0.4); Lymphocytes Absolute Auto 1.7 X10*3/uL (1.2-4.9); Lymphocytes Percent Auto 18.4 % (20-40); Mean Corpuscular HGB Conc 32.3 g/dl (31.0-36.0); Mean Corpuscular Hemoglobin 28.8 pg (27.0-33.0); Mean Corpuscular Volume 89.4 fL (80.0-98.0); Monocytes Absolute Auto 0.5 X10*3/uL (0.1-1.2); Monocytes Percent Auto 5.8 % (2-11); Neutrophils Absolute Auto 6.9 x10*3/uL (2.0-8.3); Neutrophils Percent Auto 73.5 % (45-73); Platelet Count 255 X10*3/uL (160-400); Red Blood Count 5.55 X10*6/uL (4.60-5.80); Red Cell Distribution Width 13.1 % (11.0-16.0); White Blood Count 9.4 X10*3/uL (4.8-10.8)
[2021-12-12 14:12] LABS: Estimated Average Glucose 97 mg/dL
[2021-12-12 14:26] LABS: Lithium 0.82 mmol/L (0.60-1.20)
[2021-12-12 14:54] LABS: Thyroid Stimulating Hormone 2.01 uIU/mL (0.32-4.0)
[2021-12-12 15:09] LABS: Alanine Aminotransferase 15 U/L (0-40); Albumin Level 4.9 g/dL (3.5-5.0); Alkaline Phosphatase 86 U/L (39-117); Anion Gap 13 (12-20); Aspartate Amino Transferase 13 U/L (5-37); Bilirubin Direct 0.4 mg/dL (0.0-0.5); Bilirubin Total 1.2 mg/dL (0.0-1.0); Blood Urea Nitrogen 10 mg/dL (9-16); Calcium 9.4 mg/dL (8.4-10.2); Carbon Dioxide 22 mmol/L (22-29); Chloride 109 mmol/L (96-108); Estimated Glomerular Filt Rate > 60; Glucose Random 107 mg/dL (60-115); Potassium 4.2 mmol/L (3.3-5.1); Sodium 140 mmol/L (135-145); Total Protein 7.5 g/dL (6.5-8.0)
== END 2021-12-12 13:11 | disposition home or self-care (01) ==
LOC: HO.LAB 13:10
PROVIDERS: Visit Provider Nurse Practitioner Psychiatric/Mental Health
DX: F33.2 Major depressive disorder, recurrent severe without psychotic features (principal); Z79.899 Other long term (current) drug therapy
CPT/HCPCS: 36415; 80053; 80178; 82248; 83036; 84443; 85025

== ENCOUNTER → 2022-01-04 14:13 | Outpatient (BNVA) | payer OTHER, SELFPAY | PROVIDERS: Visit Provider Internal Medicine | DX: F11.20 Opioid dependence, uncomplicated (principal) | CPT/HCPCS: 80305; 99212 ==

== ENCOUNTER → 2022-02-01 13:37 | Outpatient (BNVA) | payer OTHER, SELFPAY | PROVIDERS: Visit Provider Internal Medicine | DX: F11.11 Opioid abuse, in remission (principal); Z51.81 Encounter for therapeutic drug level monitoring; Z79.899 Other long term (current) drug therapy | CPT/HCPCS: 99212 ==

== ENCOUNTER → 2022-03-01 14:14 | Outpatient (BNVA) | payer OTHER, SELFPAY | PROVIDERS: Visit Provider Internal Medicine | DX: Z51.81 Encounter for therapeutic drug level monitoring (principal); F11.20 Opioid dependence, uncomplicated | CPT/HCPCS: 99212 ==

== ENCOUNTER → 2022-03-29 13:52 | Outpatient (BNVA) | payer OTHER, SELFPAY | PROVIDERS: Visit Provider Internal Medicine | DX: Z51.81 Encounter for therapeutic drug level monitoring (principal); F11.20 Opioid dependence, uncomplicated | CPT/HCPCS: 99212 ==

== ENCOUNTER → 2022-04-26 14:40 | Outpatient (BNVA) | payer OTHER, SELFPAY | PROVIDERS: Visit Provider Internal Medicine | DX: F11.11 Opioid abuse, in remission (principal); F12.20 Cannabis dependence, uncomplicated; Z51.81 Encounter for therapeutic drug level monitoring | CPT/HCPCS: 99212 ==

== ENCOUNTER → 2022-05-27 13:00 | Outpatient (BNVA) | payer OTHER, SELFPAY | PROVIDERS: Visit Provider Internal Medicine | DX: F11.20 Opioid dependence, uncomplicated (principal) | CPT/HCPCS: 99212 ==

== ENCOUNTER 2022-06-25 11:15 | Outpatient (REF) | payer OTHER, SELFPAY ==
[2022-07-02 07:53] LABS: Buprenorphine 45; Naloxone 70; Norbuprenorphine 159
== END 2022-06-25 11:16 | disposition home or self-care (01) ==
LOC: HO.LAB 11:15
PROVIDERS: Visit Provider Nurse Practitioner Psychiatric/Mental Health
DX: F11.20 Opioid dependence, uncomplicated (principal); Z51.81 Encounter for therapeutic drug level monitoring; Z79.899 Other long term (current) drug therapy
CPT/HCPCS: 80305; 80348; 80362; 99212

== ENCOUNTER → 2022-07-23 11:07 | Outpatient (BNVA) | payer OTHER, SELFPAY | PROVIDERS: Visit Provider Nurse Practitioner Psychiatric/Mental Health | DX: F11.20 Opioid dependence, uncomplicated (principal) | CPT/HCPCS: 99212 ==

== ENCOUNTER → 2022-08-20 10:46 | Outpatient (BNVA) | payer OTHER, SELFPAY | PROVIDERS: Visit Provider Nurse Practitioner Psychiatric/Mental Health | DX: Z51.81 Encounter for therapeutic drug level monitoring (principal); F11.20 Opioid dependence, uncomplicated | CPT/HCPCS: 80305; 99212 ==

== ENCOUNTER → 2022-11-11 09:49 | Outpatient (BNVA) | payer OTHER, SELFPAY | PROVIDERS: Visit Provider Nurse Practitioner Psychiatric/Mental Health | DX: F11.20 Opioid dependence, uncomplicated (principal); F12.20 Cannabis dependence, uncomplicated; F17.210 Nicotine dependence, cigarettes, uncomplicated; Z79.899 Other long term (current) drug therapy; Z51.81 Encounter for therapeutic drug level monitoring | CPT/HCPCS: 80305; 99212 ==

== ENCOUNTER → 2022-12-23 10:44 | Outpatient (BNVA) | payer OTHER, SELFPAY | PROVIDERS: Visit Provider Nurse Practitioner Psychiatric/Mental Health | DX: Z51.81 Encounter for therapeutic drug level monitoring (principal); F11.20 Opioid dependence, uncomplicated | CPT/HCPCS: 99212 ==

== ENCOUNTER 2023-02-14 11:00 | Outpatient (AMB) | payer OTHER, SELFPAY ==
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
[2023-02-14 11:09] VITALS: BP 124/72; PULSE 73; O2SAT 97
== END 2023-02-14 11:38 | disposition home or self-care (01) ==
LOC: HO.HCC 11:00
PROVIDERS: Visit Provider Nurse Practitioner Psychiatric/Mental Health
DX: F11.99 Opioid use, unspecified with unspecified opioid-induced disorder (principal)
CPT/HCPCS: 99213

== ENCOUNTER → 2023-02-14 11:00 | Outpatient (BNVA) | payer OTHER, SELFPAY | PROVIDERS: Visit Provider Nurse Practitioner Psychiatric/Mental Health | DX: F11.20 Opioid dependence, uncomplicated (principal) | CPT/HCPCS: 99212 ==

== ENCOUNTER 2023-02-14 11:48 | Outpatient (REF) | payer OTHER, SELFPAY ==
[2023-02-14 11:58] LABS: MANUAL DIFF FLAG NO
[2023-02-14 13:53] LABS: Basophils Absolute Auto 0.1 X10*3/uL (0.0-0.2); Basophils Percent Auto 0.8 % (0-2); Eosinophils Absolute Auto 0.2 X10*3/uL (0.0-0.4); Eosinophils Percent Auto 3.5 % (0-4); Hematocrit 45.7 % (42.0-52.0); Hemoglobin 14.8 g/dl (14.0-18.0); Imm Gran Abs Auto 0.03 X10*3/uL (0.00-0.03); Imm Gran Pct Auto 0.5 % (0.0-0.4); Lymphocytes Absolute Auto 1.6 X10*3/uL (1.2-4.9); Lymphocytes Percent Auto 25.8 % (20-40); Mean Corpuscular HGB Conc 32.4 g/dl (31.0-36.0); Mean Corpuscular Hemoglobin 28.8 pg (27.0-33.0); Mean Corpuscular Volume 88.9 fL (80.0-98.0); Mean Platelet Volume 9.8 fL (9.4-12.4); Monocytes Absolute Auto 0.4 X10*3/uL (0.1-1.2); Neutrophils Absolute Auto 3.9 x10*3/uL (2.0-8.3); Neutrophils Percent Auto 62.4 % (45-73); Platelet Count 269 X10*3/uL (160-400); Red Blood Count 5.14 X10*6/uL (4.60-5.80); Red Cell Distribution Width 12.7 % (11.0-16.0); White Blood Count 6.3 X10*3/uL (4.8-10.8)
[2023-02-14 14:50] LABS: Alanine Aminotransferase 10 U/L (0-40); Albumin Level 4.6 g/dL (3.5-5.0); Alkaline Phosphatase 58 U/L (39-117); Anion Gap 11 (12-20); Aspartate Amino Transferase 13 U/L (5-37); Bilirubin Direct 0.2 mg/dL (0.0-0.5); Bilirubin Total 0.7 mg/dL (0.0-1.0); Blood Urea Nitrogen 19 mg/dL (9-16); Calcium 9.4 mg/dL (8.4-10.2); Carbon Dioxide 26 mmol/L (22-29); Chloride 103 mmol/L (96-108); Cholesterol 165 mg/dL (<200); Estimated Glomerular Filt Rate > 60; Glucose Random 95 mg/dL (60-115); HDL Cholesterol 47 mg/dL (>40); LDL Cholesterol Calculated 97 mg/dL (<100); Potassium 4.2 mmol/L (3.3-5.1); Sodium 136 mmol/L (135-145); Total Protein 7.5 g/dL (6.5-8.0); Triglycerides 106 mg/dL (<150)
[2023-02-14 14:51] LABS: Free T4 (Free Thyroxine) 0.82 ng/dL (0.71-1.85); Thyroid Stimulating Hormone 3.88 uIU/mL (0.32-4.0); Vitamin D 25-OH Total 18.6 ng/mL (>30)
[2023-02-14 15:08] LABS: Lithium 0.87 mmol/L (0.60-1.20)
[2023-02-15 12:32] LABS: Triiodothyronine T3 Free 3.6 pg/mL (2.3-4.2)
== END 2023-02-14 11:49 | disposition home or self-care (01) ==
LOC: HO.LAB 11:48
PROVIDERS: Visit Provider Nurse Practitioner Psychiatric/Mental Health
DX: F11.20 Opioid dependence, uncomplicated (principal); F14.90 Cocaine use, unspecified, uncomplicated; Z79.899 Other long term (current) drug therapy
CPT/HCPCS: 36415; 80053; 80061; 80178; 82248; 82306; 84439; 84443; 84481; 85025

== ENCOUNTER 2023-04-11 10:47 | Outpatient (AMB) | payer OTHER, SELFPAY ==
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
[2023-04-11 10:55] VITALS: BP 126/70; PULSE 63; O2SAT 97
== END 2023-04-11 11:33 | disposition home or self-care (01) ==
PROVIDERS: Visit Provider Nurse Practitioner Psychiatric/Mental Health
DX: F11.11 Opioid abuse, in remission (principal)
CPT/HCPCS: 99213

== ENCOUNTER → 2023-04-11 10:47 | Outpatient (BNVA) | payer OTHER, SELFPAY | PROVIDERS: Visit Provider Nurse Practitioner Psychiatric/Mental Health | DX: F11.11 Opioid abuse, in remission (principal) | CPT/HCPCS: 99212 ==

== ENCOUNTER 2023-06-06 10:34 | Outpatient (AMB) | payer OTHER, SELFPAY ==
[2023-06-06 10:43] VITALS: BP 110/78; PULSE 66; O2SAT 95
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
== END 2023-06-06 11:48 | disposition home or self-care (01) ==
PROVIDERS: Visit Provider Nurse Practitioner Family
DX: F11.11 Opioid abuse, in remission (principal)
CPT/HCPCS: 99213

== ENCOUNTER → 2023-06-06 10:34 | Outpatient (BNVA) | payer OTHER, SELFPAY | PROVIDERS: Visit Provider Nurse Practitioner Family | DX: Z51.81 Encounter for therapeutic drug level monitoring (principal); F11.11 Opioid abuse, in remission | CPT/HCPCS: 99212 ==

== ENCOUNTER 2023-07-04 10:37 | Outpatient (AMB) | payer OTHER, SELFPAY ==
[2023-07-04 10:44] VITALS: BP 122/70; PULSE 80; O2SAT 97
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
== END 2023-07-04 11:29 | disposition home or self-care (01) ==
PROVIDERS: Visit Provider Nurse Practitioner Family
DX: F11.11 Opioid abuse, in remission (principal); F14.129 Cocaine abuse with intoxication, unspecified
CPT/HCPCS: 99214

== ENCOUNTER → 2023-07-04 10:37 | Outpatient (BNVA) | payer OTHER, SELFPAY | PROVIDERS: Visit Provider Nurse Practitioner Family | DX: F11.20 Opioid dependence, uncomplicated (principal); F14.129 Cocaine abuse with intoxication, unspecified | CPT/HCPCS: 99212 ==

== ENCOUNTER → 2023-08-01 13:22 | Outpatient (BNVA) | payer OTHER, SELFPAY | PROVIDERS: Visit Provider Nurse Practitioner Family ==

== ENCOUNTER 2023-08-18 10:40 | Outpatient (AMB) | payer MEDICARE, SELFPAY ==
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
[2023-08-18 10:57] VITALS: BP 110/76; PULSE 72; O2SAT 95
== END 2023-08-18 11:36 | disposition home or self-care (01) ==
PROVIDERS: Visit Provider Nurse Practitioner Family
DX: F11.11 Opioid abuse, in remission (principal); Z51.81 Encounter for therapeutic drug level monitoring
CPT/HCPCS: 99213

== ENCOUNTER 2023-08-18 10:40 | Outpatient (REF) | payer MEDICARE, MEDICAID, SELFPAY | END 2023-08-18 10:41 | disposition home or self-care (01) | LOC: HO.LAB 10:40 | PROVIDERS: Visit Provider Nurse Practitioner Family | DX: F11.11 Opioid abuse, in remission (principal); F14.20 Cocaine dependence, uncomplicated; F12.20 Cannabis dependence, uncomplicated; Z51.81 Encounter for therapeutic drug level monitoring; Z79.899 Other long term (current) drug therapy | CPT/HCPCS: 80305; 80348; 80362; 99212 ==

== ENCOUNTER 2023-09-01 10:40 | Outpatient (AMB) | payer MEDICARE, SELFPAY ==
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
[2023-09-01 10:47] VITALS: BP 128/70; PULSE 85; O2SAT 96
== END 2023-09-01 11:33 | disposition home or self-care (01) ==
PROVIDERS: Visit Provider Nurse Practitioner Family
DX: F11.99 Opioid use, unspecified with unspecified opioid-induced disorder (principal)
CPT/HCPCS: 99213

== ENCOUNTER → 2023-09-01 10:40 | Outpatient (BNVA) | payer MEDICARE, MEDICAID, SELFPAY | PROVIDERS: Visit Provider Nurse Practitioner Family | DX: F11.20 Opioid dependence, uncomplicated (principal) | CPT/HCPCS: 99212 ==

== ENCOUNTER 2023-09-29 10:43 | Outpatient (AMB) | payer OTHER, SELFPAY ==
[2023-09-29 10:54] VITALS: BP 120/70; PULSE 88; RESP 19
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
== END 2023-09-29 11:21 | disposition home or self-care (01) ==
PROVIDERS: Visit Provider Nurse Practitioner Family
DX: F11.11 Opioid abuse, in remission (principal)
CPT/HCPCS: 99213

== ENCOUNTER → 2023-09-29 10:43 | Outpatient (BNVA) | payer OTHER, SELFPAY | PROVIDERS: Visit Provider Nurse Practitioner Family | DX: Z51.81 Encounter for therapeutic drug level monitoring (principal); F11.11 Opioid abuse, in remission | CPT/HCPCS: 99212 ==

== ENCOUNTER 2023-10-24 10:44 | Outpatient (AMB) | payer OTHER, SELFPAY ==
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
== END 2023-10-24 11:44 | disposition home or self-care (01) ==
PROVIDERS: Visit Provider Nurse Practitioner Family
DX: F11.11 Opioid abuse, in remission (principal)
CPT/HCPCS: 99213

== ENCOUNTER → 2023-10-24 10:44 | Outpatient (BNVA) | payer OTHER, SELFPAY | PROVIDERS: Visit Provider Nurse Practitioner Family | DX: F11.20 Opioid dependence, uncomplicated (principal) | CPT/HCPCS: 99212 ==

== ENCOUNTER 2023-11-21 11:01 | Outpatient (AMB) | payer OTHER, SELFPAY ==
[2023-11-21 11:05] VITALS: BP 136/90; PULSE 71
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
== END 2023-11-21 11:59 | disposition home or self-care (01) ==
PROVIDERS: Visit Provider Nurse Practitioner Family
DX: F11.11 Opioid abuse, in remission (principal); F14.129 Cocaine abuse with intoxication, unspecified
CPT/HCPCS: 99213

== ENCOUNTER → 2023-11-21 11:01 | Outpatient (BNVA) | payer OTHER, SELFPAY | PROVIDERS: Visit Provider Nurse Practitioner Family | DX: Z51.81 Encounter for therapeutic drug level monitoring (principal); Z79.899 Other long term (current) drug therapy | CPT/HCPCS: 99212 ==

== ENCOUNTER 2023-12-19 10:55 | Outpatient (AMB) | payer OTHER, SELFPAY ==
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
== END 2023-12-19 12:51 | disposition home or self-care (01) ==
PROVIDERS: Visit Provider Nurse Practitioner Psychiatric/Mental Health
DX: F11.21 Opioid dependence, in remission (principal)
CPT/HCPCS: 99213

== ENCOUNTER → 2023-12-19 10:55 | Outpatient (BNVA) | payer OTHER, SELFPAY | PROVIDERS: Visit Provider Nurse Practitioner Psychiatric/Mental Health | DX: F11.21 Opioid dependence, in remission (principal) | CPT/HCPCS: 99212 ==

== ENCOUNTER 2024-01-12 14:30 | Outpatient (AMB) | payer OTHER, SELFPAY ==
[2024-01-12 14:39] VITALS: BP 120/60; PULSE 69; O2SAT 96
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
== END 2024-01-12 15:51 | disposition home or self-care (01) ==
PROVIDERS: Visit Provider Nurse Practitioner Psychiatric/Mental Health
DX: F11.21 Opioid dependence, in remission (principal)
CPT/HCPCS: 99213

== ENCOUNTER → 2024-01-12 14:30 | Outpatient (BNVA) | payer OTHER, SELFPAY | PROVIDERS: Visit Provider Nurse Practitioner Psychiatric/Mental Health | DX: F11.21 Opioid dependence, in remission (principal); Z51.81 Encounter for therapeutic drug level monitoring; Z79.899 Other long term (current) drug therapy | CPT/HCPCS: 99212 ==

== ENCOUNTER 2024-02-09 15:29 | Outpatient (AMB) | payer OTHER, SELFPAY ==
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
== END 2024-02-09 16:04 | disposition home or self-care (01) ==
PROVIDERS: Visit Provider Nurse Practitioner Psychiatric/Mental Health
DX: F11.21 Opioid dependence, in remission (principal)
CPT/HCPCS: 99213

== ENCOUNTER → 2024-02-09 15:29 | Outpatient (BNVA) | payer OTHER, SELFPAY | PROVIDERS: Visit Provider Nurse Practitioner Psychiatric/Mental Health | DX: Z51.81 Encounter for therapeutic drug level monitoring (principal); F11.21 Opioid dependence, in remission | CPT/HCPCS: 99212 ==

== ENCOUNTER 2024-02-16 04:24 | Emergency (ER) | payer OTHER, SELFPAY ==
[2024-02-16 04:37] VITALS: BP 120/89; BP 130/80; PULSE 67; PULSE 72; RESP 18; TEMP 36.7; O2SAT 100; O2SAT 99; BMI 22.8
[2024-02-16 06:06] LABS: Appearance Urine Clear; Color Urine Yellow; Glucose Urine UA Negative (Negative); Leukocyte Esterase Urine Trace (Negative); Nitrite Urine Negative (Negative); PH 7.5 (5.0-9.0); Specific Gravity - Urine <= 1.005 (1.005-1.025); UMIC TRIGGER UACC YES; Urine Blood Negative (Negative); Urine Ketones Negative (Negative); Urine Protein Negative (Neg-Trace)
[2024-02-16 06:08] LABS: Bacteria Urine None Seen (None Seen); Hyaline Casts Urine 0-2 /LPF (0-2); RBC Urine 0-2 /HPF (0-2); Squamous Epithelial Cell Urine 0-2 /HPF (0-2); WBC Urine 0-5 /HPF (0-5)
[2024-02-16 06:18] LABS: Amphetamine Screen Urine Not Detected (Not Detect); Barbiturates, Urine Not Detected (Not Detect); Benzodiazepines Screen Urine Not Detected (Not Detect); Buprenorphine Scr Not Detected (Not Detect); Cannabinoid Screen Urine Not Detected (Not Detect); Cocaine Screen Urine POSITIVE (Not Detect); Fentanyl, urine Not Detected (Not Detect); Methadone Screen, Urine Not Detected (Not Detect); Opiate Screen Urine Not Detected (Not Detect); Oxycodone Screen Urine Not Detected (Not Detect); Phencyclidine Screen Urine Not Detected (Not Detect)
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
[2024-02-16 06:52] VITALS: BP 127/90; PULSE 70; RESP 12; TEMP 36.4; O2SAT 100
[2024-02-16] MEDS: Buprenorphine/Naloxone 8/2 mg FILM 2 FILM SUBLINGUAL (06:59)
[2024-02-16 07:39] VITALS: BP 127/90; PULSE 70; RESP 12; TEMP 36.4; O2SAT 100
== END 2024-02-16 07:40 | disposition home or self-care (01) ==
PROVIDERS: Emergency Provider Emergency Medicine
DX: F11.13 Opioid abuse with withdrawal (principal); F14.10 Cocaine abuse, uncomplicated; F41.9 Anxiety disorder, unspecified; F17.210 Nicotine dependence, cigarettes, uncomplicated; Z79.899 Other long term (current) drug therapy; Z51.81 Encounter for therapeutic drug level monitoring
CPT/HCPCS: 80307; 81001; 99284

== ENCOUNTER 2024-03-08 14:17 | Outpatient (AMB) | payer OTHER, SELFPAY ==
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
== END 2024-03-08 14:54 | disposition home or self-care (01) ==
PROVIDERS: Visit Provider Nurse Practitioner Psychiatric/Mental Health
DX: F11.21 Opioid dependence, in remission (principal)
CPT/HCPCS: 99213

== ENCOUNTER → 2024-03-08 14:17 | Outpatient (BNVA) | payer OTHER, SELFPAY | PROVIDERS: Visit Provider Nurse Practitioner Psychiatric/Mental Health | DX: F11.21 Opioid dependence, in remission (principal); Z51.81 Encounter for therapeutic drug level monitoring | CPT/HCPCS: 99212 ==

== ENCOUNTER 2024-04-19 14:32 | Outpatient (AMB) | payer OTHER, SELFPAY ==
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
== END 2024-04-19 15:00 | disposition home or self-care (01) ==
LOC: HO.HCC 14:33
PROVIDERS: Visit Provider Nurse Practitioner Psychiatric/Mental Health
DX: F11.21 Opioid dependence, in remission (principal)
CPT/HCPCS: 99213

== ENCOUNTER → 2024-04-19 14:32 | Outpatient (BNVA) | payer OTHER, SELFPAY | PROVIDERS: Visit Provider Nurse Practitioner Psychiatric/Mental Health | DX: F11.21 Opioid dependence, in remission (principal) | CPT/HCPCS: 99212 ==

== ENCOUNTER 2024-05-17 12:51 | Outpatient (AMB) | payer OTHER, SELFPAY ==
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
== END 2024-05-17 13:22 | disposition home or self-care (01) ==
PROVIDERS: Visit Provider Nurse Practitioner Psychiatric/Mental Health
DX: F11.21 Opioid dependence, in remission (principal)
CPT/HCPCS: 99213

== ENCOUNTER → 2024-05-17 12:51 | Outpatient (BNVA) | payer OTHER, SELFPAY | PROVIDERS: Visit Provider Nurse Practitioner Psychiatric/Mental Health | DX: F11.21 Opioid dependence, in remission (principal); Z79.899 Other long term (current) drug therapy | CPT/HCPCS: 99212 ==

== ENCOUNTER 2024-06-28 14:21 | Outpatient (AMB) | payer OTHER, SELFPAY ==
--- NOTE | 2024-06-28 14:43 | AM.OFFVISNUR ---
Vital Signs 06/28/24 14:44 BP 112/76 Blood Pressure Location Rt brachial Position Sitting Respiration 18 Pulse 80 Pulse Source Pulse Oximeter Pulse Oximetry (%) 97 Oxygen Delivery Method Room Air Intake Visit Reasons: Office visit Allergies No Known Allergies Allergy (Verified 02/16/24 04:40)
[2024-06-28 14:44] VITALS: BP 112/76; PULSE 80; RESP 18; O2SAT 97
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
== END 2024-06-28 15:08 | disposition home or self-care (01) ==
PROVIDERS: Visit Provider Nurse Practitioner Psychiatric/Mental Health
DX: F11.21 Opioid dependence, in remission (principal)
CPT/HCPCS: 99213

== ENCOUNTER → 2024-07-28 14:15 | Outpatient (BNVA) | payer OTHER, SELFPAY | PROVIDERS: Visit Provider Nurse Practitioner Psychiatric/Mental Health | DX: F11.21 Opioid dependence, in remission (principal) | CPT/HCPCS: 99212 ==

== ENCOUNTER 2024-10-06 13:23 | Outpatient (AMB) | payer OTHER, SELFPAY ==
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
[2024-10-06 13:32] VITALS: PULSE 67; O2SAT 99; BMI 20.1
== END 2024-10-06 14:14 | disposition home or self-care (01) ==
LOC: HO.HCC 13:24
PROVIDERS: Visit Provider Internal Medicine
DX: Z51.81 Encounter for therapeutic drug level monitoring (principal); F11.21 Opioid dependence, in remission
CPT/HCPCS: 99213

== ENCOUNTER → 2024-10-06 13:23 | Outpatient (BNVA) | payer OTHER, SELFPAY | PROVIDERS: Visit Provider Internal Medicine | DX: F11.21 Opioid dependence, in remission (principal); F14.90 Cocaine use, unspecified, uncomplicated; Z51.81 Encounter for therapeutic drug level monitoring | CPT/HCPCS: 80307; 99212 ==

== ENCOUNTER 2024-12-10 14:02 | Outpatient (AMB) | payer OTHER, SELFPAY ==
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
== END 2024-12-10 14:34 | disposition home or self-care (01) ==
LOC: HO.HCC 14:03
PROVIDERS: Visit Provider Internal Medicine
DX: F11.21 Opioid dependence, in remission (principal)
CPT/HCPCS: 99213

== ENCOUNTER → 2024-12-10 14:02 | Outpatient (BNVA) | payer OTHER, SELFPAY | PROVIDERS: Visit Provider Internal Medicine | DX: F11.21 Opioid dependence, in remission (principal); Z79.899 Other long term (current) drug therapy | CPT/HCPCS: 99212 ==

== ENCOUNTER 2024-12-16 12:11 | Outpatient (REF) | payer OTHER, SELFPAY ==
[2024-12-16 12:23] LABS: MANUAL DIFF FLAG NO
[2024-12-16 14:23] LABS: Basophils Percent Auto 0.7 % (0-2); Eosinophils Absolute Auto 0.3 X10*3/uL (0.0-0.4); Eosinophils Percent Auto 4.6 % (0-4); Hematocrit 45.3 % (42.0-52.0); Imm Gran Abs Auto 0.02 X10*3/uL (0.00-0.03); Imm Gran Pct Auto 0.4 % (0.0-0.4); Lymphocytes Absolute Auto 1.7 X10*3/uL (1.2-4.9); Lymphocytes Percent Auto 30.6 % (20-40); Mean Corpuscular HGB Conc 33.1 g/dl (31.0-36.0); Mean Corpuscular Hemoglobin 29.4 pg (27.0-33.0); Mean Corpuscular Volume 88.6 fL (80.0-98.0); Mean Platelet Volume 9.6 fL (9.4-12.4); Monocytes Absolute Auto 0.3 X10*3/uL (0.1-1.2); Monocytes Percent Auto 6.3 % (2-11); Neutrophils Absolute Auto 3.1 x10*3/uL (2.0-8.3); Neutrophils Percent Auto 57.4 % (45-73); Platelet Count 220 X10*3/uL (160-400); Red Blood Count 5.11 X10*6/uL (4.60-5.80); Red Cell Distribution Width 13.1 % (11.0-16.0); White Blood Count 5.4 X10*3/uL (4.8-10.8)
[2024-12-16 14:33] LABS: Estimated Average Glucose 105 mg/dL; Hemoglobin A1c % 5.3 % (<6.0)
[2024-12-16 15:06] LABS: Alanine Aminotransferase 22 U/L (0-40); Albumin Level 4.3 g/dL (3.5-5.0); Alkaline Phosphatase 63 U/L (39-117); Anion Gap 10 (12-20); Aspartate Amino Transferase 14 U/L (5-37); Bilirubin Total 0.7 mg/dL (0.0-1.0); Blood Urea Nitrogen 16 mg/dL (9-16); Calcium 9.1 mg/dL (8.4-10.2); Carbon Dioxide 27 mmol/L (22-29); Chloride 110 mmol/L (96-108); Estimated Glomerular Filt Rate > 60; Glucose Random 99 mg/dL (60-115); Potassium 4.1 mmol/L (3.3-5.1); Sodium 143 mmol/L (135-145); Total Protein 6.4 g/dL (6.5-8.0)
[2024-12-16 15:34] LABS: Thyroid Stimulating Hormone 2.45 uIU/mL (0.32-4.0); Vitamin D 25-OH Total 12.2 ng/mL (>30)
[2024-12-16 16:05] LABS: Lithium 0.77 mmol/L (0.60-1.20)
== END 2024-12-16 12:12 | disposition home or self-care (01) ==
LOC: HO.LAB 12:11
PROVIDERS: Visit Provider Nurse Practitioner Psychiatric/Mental Health
DX: Z79.899 Other long term (current) drug therapy (principal)
CPT/HCPCS: 36415; 80053; 80178; 82306; 83036; 84443; 85025

== ENCOUNTER 2025-03-14 11:20 | Outpatient (AMB) | payer OTHER, SELFPAY ==
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
[2025-03-14 11:30] VITALS: BP 110/70; PULSE 56; O2SAT 96
== END 2025-03-14 11:45 | disposition home or self-care (01) ==
LOC: HO.HCC 11:20
PROVIDERS: Visit Provider Internal Medicine
DX: F11.21 Opioid dependence, in remission (principal)
CPT/HCPCS: 99213

== ENCOUNTER → 2025-03-14 11:20 | Outpatient (BNVA) | payer OTHER, SELFPAY | PROVIDERS: Visit Provider Internal Medicine | DX: F11.21 Opioid dependence, in remission (principal) | CPT/HCPCS: 99212 ==